=== PATIENT | male | born 1965 | race Caucasian/White ===

== ENCOUNTER 2019-05-21 18:26 | Inpatient (IN) | payer OTHER, MEDICAID ==
[~2019-05-21] VITALS: Ht 170.2 cm; Wt 80.3 kg
[2019-05-21 20:17] VITALS: BP_SYST 106
[2019-05-21] MEDS ORDERED: LEVOFLOXACIN 500 MG/D5W 100 ML IV ONE (21:32)
[2019-05-21] MEDS: NACL 0.9% 1,000 ML IV SCH (21:32)
[2019-05-21] MEDS: ACETAMINOPHEN 325 MG TABLET PO PRN (21:32)
[2019-05-21] MEDS ORDERED: cefTRIAXone 1 GM IVPB PREMIX 50 ML IV ONE (21:32)
[2019-05-21] MEDS: LEVOFLOXACIN 500 MG/D5W 100 ML IV SCH (21:44)
[2019-05-21 21:58] LABS: BASOPHILS % (AUTO) 0.4 % (0.0-2.0); EOSINOPHILS % (AUTO) 0.7 % (0.0-4.0); HEMATOCRIT 30.7 % (36-54); HEMOGLOBIN 10.3 g/dL (14.0-18.0); LYMPHOCYTES # (AUTO) 0.8 K/uL (1.0-5.5); LYMPHOCYTES % (AUTO) 11.2 % (20.5-51.5); MEAN CORPUSCULAR HEMOGLOBIN 30 pg (27-31); MEAN CORPUSCULAR HGB CONC 34 % (32-36); MEAN CORPUSCULAR VOLUME 88 fL (79.0-98.0); MONOCYTES # (AUTO) 0.7 K/uL (0.0-1.0); MONOCYTES % (AUTO) 10.2 % (1.7-9.3); NEUTROPHILS # (AUTO) 5.3 K/uL (1.8-7.7); NEUTROPHILS % (AUTO) 77.5 % (40.0-70.0); PLATELET COUNT (AUTO) 319 K/uL (130-430); RED CELL DISTRIBUTION WIDTH 15.7 % (9.0-15.0); WHITE BLOOD COUNT (AUTO) 6.9 K/uL (4.8-10.8)
[2019-05-21 22:07] LABS: ALBUMIN 2.5 g/dL (3.4-4.8); CALCIUM 7.9 mg/dL (8.4-11.0); CREATININE 0.65 mg/dL (0.55-1.30); POTASSIUM 3.6 mmol/L (3.5-5.1); TOTAL BILIRUBIN 0.5 mg/dL (0.0-1.0)
[2019-05-22 01:16] VITALS: BP_SYST 108
[2019-05-22] MEDS: NACL 0.9% 1,000 ML IV SCH ×2 (06:23→17:23)
[2019-05-22] MEDS: ENOXAPARIN SODIUM 40 MG/0.4 ML SYRINGE SUBCUT SCH (09:07)
[2019-05-22] MEDS: ACETAMINOPHEN 325 MG TABLET PO PRN ×2 (09:17→23:00)
[2019-05-22] MEDS ORDERED: cefTRIAXone 1 GM in D5W 50 ML IV SCH (12:00)
[2019-05-22 12:47] VITALS: BP_SYST 102
[2019-05-22 16:00] VITALS: BP_SYST 97
[2019-05-22 20:00] VITALS: BP_SYST 111
[2019-05-22] MEDS: LEVOFLOXACIN 500 MG/D5W 100 ML IV SCH (22:59)
[2019-05-22] MEDS: BISACODYL 10 MG/SUPPOSITORY RC PRN (23:00)
[2019-05-23 01:00] VITALS: BP_SYST 121
[2019-05-23] MEDS: NACL 0.9% 1,000 ML IV SCH ×3 (04:08→23:00)
[2019-05-23 04:10] VITALS: BP_SYST 111
[2019-05-23 06:13] LABS: BASOPHILS % (AUTO) 0.4 % (0.0-2.0); EOSINOPHILS # (AUTO) 0.1 K/uL (0.0-0.4); EOSINOPHILS % (AUTO) 1.1 % (0.0-4.0); HEMATOCRIT 28.1 % (36-54); HEMOGLOBIN 9.4 g/dL (14.0-18.0); MEAN CORPUSCULAR HEMOGLOBIN 29 pg (27-31); MEAN CORPUSCULAR HGB CONC 33 % (32-36); MEAN CORPUSCULAR VOLUME 87 fL (79.0-98.0); MONOCYTES # (AUTO) 0.7 K/uL (0.0-1.0); MONOCYTES % (AUTO) 15.9 % (1.7-9.3); NEUTROPHILS # (AUTO) 2.8 K/uL (1.8-7.7); NEUTROPHILS % (AUTO) 60.6 % (40.0-70.0); PLATELET COUNT (AUTO) 294 K/uL (130-430); RED BLOOD CELL COUNT(AUTO) 3.22 MIL/uL (4.2-6.2); RED CELL DISTRIBUTION WIDTH 15.3 % (9.0-15.0); WHITE BLOOD COUNT (AUTO) 4.6 K/uL (4.8-10.8)
[2019-05-23 06:52] LABS: CALCIUM 7.9 mg/dL (8.4-11.0); CREATININE 0.58 mg/dL (0.55-1.30); POTASSIUM 3.4 mmol/L (3.5-5.1)
[2019-05-23] MEDS: ENOXAPARIN SODIUM 40 MG/0.4 ML SYRINGE SUBCUT SCH (09:47)
[2019-05-23 11:17] VITALS: BP_SYST 107
[2019-05-23] MEDS ORDERED: NORFLURANE/HFC 245FA 103.5 ML SPRAY TP ONE (14:00)
[2019-05-23] MEDS ORDERED: PIPERACILLIN/TAZO 4.5GM/DEX-IS 100 ML IV ONE (14:30)
[2019-05-23 15:00] VITALS: BP_SYST 108
[2019-05-23 15:56] LABS: BODY FLUID CRYSTALS NO CRYSTALS SEEN (None Seen); RBC, BODY FLUID 10350 /uL; WBC, BODY FLUID 275 /uL
[2019-05-23 20:03] VITALS: BP_SYST 107
[2019-05-23] MEDS: PIPERACILLIN/TAZO 4.5GM/DEX-IS 100 ML IV SCH (21:27)
[2019-05-23 22:58] VITALS: BP_SYST 117
[2019-05-23] MEDS: ACETAMINOPHEN 325 MG TABLET PO PRN (22:59)
[2019-05-24] MEDS: NACL 0.9% 1,000 ML IV SCH ×2 (05:48→19:41)
[2019-05-24] MEDS: PIPERACILLIN/TAZO 4.5GM/DEX-IS 100 ML IV SCH ×2 (05:49→13:11)
[2019-05-24 07:55] VITALS: BP_SYST 118
[2019-05-24] MEDS: ENOXAPARIN SODIUM 40 MG/0.4 ML SYRINGE SUBCUT SCH (08:45)
[2019-05-24 11:08] VITALS: BP_SYST 100
[2019-05-24] MEDS: BISACODYL 10 MG/SUPPOSITORY RC PRN (13:10)
[2019-05-24 15:10] VITALS: BP_SYST 119
[2019-05-24] MEDS ORDERED: GENTAMICIN 120 mg/ NS 100 mL IVPB IV ONE (17:45)
[2019-05-24 20:26] VITALS: BP_SYST 128
[2019-05-25 01:00] VITALS: BP_SYST 105
[2019-05-25] MEDS: NACL 0.9% 1,000 ML IV SCH ×2 (05:44→17:51)
[2019-05-25 07:35] VITALS: BP_SYST 122
[2019-05-25] MEDS: ENOXAPARIN SODIUM 40 MG/0.4 ML SYRINGE SUBCUT SCH (09:11)
[2019-05-25] MEDS: GENTAMICIN SULFATE IV SCH (09:36)
[2019-05-25] MEDS: NS IV SCH (09:36)
[2019-05-25 12:30] VITALS: BP_SYST 90
[2019-05-25 16:12] VITALS: BP_SYST 93
[2019-05-25 20:00] VITALS: BP_SYST 127
[2019-05-26 00:28] VITALS: BP_SYST 97
[2019-05-26] MEDS: NACL 0.9% 1,000 ML IV SCH ×4 (01:10→23:39)
[2019-05-26 06:26] LABS: BASOPHILS % (AUTO) 0.6 % (0.0-2.0); EOSINOPHILS # (AUTO) 0.2 K/uL (0.0-0.4); EOSINOPHILS % (AUTO) 2.8 % (0.0-4.0); HEMOGLOBIN 10.3 g/dL (14.0-18.0); LYMPHOCYTES # (AUTO) 1.7 K/uL (1.0-5.5); LYMPHOCYTES % (AUTO) 30.3 % (20.5-51.5); MEAN CORPUSCULAR HEMOGLOBIN 30 pg (27-31); MEAN CORPUSCULAR HGB CONC 34 % (32-36); MEAN CORPUSCULAR VOLUME 87 fL (79.0-98.0); MONOCYTES # (AUTO) 0.7 K/uL (0.0-1.0); MONOCYTES % (AUTO) 12.5 % (1.7-9.3); NEUTROPHILS # (AUTO) 3.1 K/uL (1.8-7.7); NEUTROPHILS % (AUTO) 53.8 % (40.0-70.0); PLATELET COUNT (AUTO) 391 K/uL (130-430); RED BLOOD CELL COUNT(AUTO) 3.47 MIL/uL (4.2-6.2); RED CELL DISTRIBUTION WIDTH 15.8 % (9.0-15.0); WHITE BLOOD COUNT (AUTO) 5.7 K/uL (4.8-10.8)
[2019-05-26 06:43] LABS: ALBUMIN 2.6 g/dL (3.4-4.8); CALCIUM 8.2 mg/dL (8.4-11.0); CREATININE 0.59 mg/dL (0.55-1.30); POTASSIUM 3.6 mmol/L (3.5-5.1); TOTAL BILIRUBIN 0.3 mg/dL (0.0-1.0)
[2019-05-26 08:00] VITALS: BP_SYST 102
[2019-05-26] MEDS: NS IV SCH (08:44)
[2019-05-26] MEDS: GENTAMICIN SULFATE IV SCH (08:44)
[2019-05-26] MEDS: ENOXAPARIN SODIUM 40 MG/0.4 ML SYRINGE SUBCUT SCH (08:48)
[2019-05-26] MEDS: BISACODYL 10 MG/SUPPOSITORY RC PRN (10:30)
[2019-05-26 12:25] VITALS: BP_SYST 101
[2019-05-26 16:00] VITALS: BP_SYST 111
[2019-05-26 20:00] VITALS: BP_SYST 98
[2019-05-27 02:05] VITALS: BP_SYST 96
[2019-05-27 08:15] VITALS: BP_SYST 101
[2019-05-27] MEDS: GENTAMICIN SULFATE IV SCH (08:27)
[2019-05-27] MEDS: NS IV SCH (08:27)
[2019-05-27] MEDS: ENOXAPARIN SODIUM 40 MG/0.4 ML SYRINGE SUBCUT SCH (08:28)
[2019-05-27 09:36] LABS: BASOPHILS % (AUTO) 0.6 % (0.0-2.0); EOSINOPHILS # (AUTO) 0.2 K/uL (0.0-0.4); EOSINOPHILS % (AUTO) 2.8 % (0.0-4.0); HEMATOCRIT 31.2 % (36-54); HEMOGLOBIN 10.5 g/dL (14.0-18.0); LYMPHOCYTES # (AUTO) 1.7 K/uL (1.0-5.5); LYMPHOCYTES % (AUTO) 27.7 % (20.5-51.5); MEAN CORPUSCULAR HEMOGLOBIN 29 pg (27-31); MEAN CORPUSCULAR HGB CONC 34 % (32-36); MEAN CORPUSCULAR VOLUME 88 fL (79.0-98.0); MONOCYTES # (AUTO) 0.5 K/uL (0.0-1.0); MONOCYTES % (AUTO) 8.2 % (1.7-9.3); NEUTROPHILS # (AUTO) 3.8 K/uL (1.8-7.7); NEUTROPHILS % (AUTO) 60.7 % (40.0-70.0); PLATELET COUNT (AUTO) 394 K/uL (130-430); RED BLOOD CELL COUNT(AUTO) 3.57 MIL/uL (4.2-6.2); RED CELL DISTRIBUTION WIDTH 15.5 % (9.0-15.0); WHITE BLOOD COUNT (AUTO) 6.2 K/uL (4.8-10.8)
[2019-05-27] MEDS ORDERED: DIATR MEGLU/DIATRIZ SOD 30 ML SOLUTION PO ONE (09:36)
[2019-05-27 09:57] LABS: ALBUMIN 2.5 g/dL (3.4-4.8); CALCIUM 8.7 mg/dL (8.4-11.0); CREATININE 0.64 mg/dL (0.55-1.30); POTASSIUM 3.5 mmol/L (3.5-5.1); TOTAL BILIRUBIN 0.3 mg/dL (0.0-1.0)
[2019-05-27] MEDS: NACL 0.9% 1,000 ML IV SCH (10:14)
[2019-05-27 12:42] VITALS: BP_SYST 96
[2019-05-27 16:00] VITALS: BP_SYST 103
[2019-05-27 17:44] VITALS: BP_SYST 96
[2019-05-27 20:00] VITALS: BP_SYST 113
[2019-05-27] MEDS ORDERED: CIPROFLOXACIN LACT 400 MG/D5W 200 ML IV SCH (21:00)
== END 2019-05-27 20:30 | DRG 871 ==
LOC: SMU 19:50 → STU 20:13
PROVIDERS: ADMIT Internal Medicine; ATTEND Internal Medicine
PROC: 0S9D3ZZ Drainage of Left Knee Joint, Percutaneous Approach (ICD-10-PCS; principal; 2019-05-23)
DX: A41.52 Sepsis due to Pseudomonas (principal); G82.50 Quadriplegia, unspecified; N39.0 Urinary tract infection, site not specified; L03.116 Cellulitis of left lower limb; M25.062 Hemarthrosis, left knee; M17.0 Bilateral primary osteoarthritis of knee; D64.9 Anemia, unspecified; N31.9 Neuromuscular dysfunction of bladder, unspecified; M41.9 Scoliosis, unspecified; M25.462 Effusion, left knee; M25.461 Effusion, right knee; Z87.891 Personal history of nicotine dependence
CPT/HCPCS: 36415; 71045; 73560-TC; 76770; 80048; 80053; 80170-TC; 85025; 87040-TC; 87070-TC; 87086; 87186-TC; 87205-TC; 89051-TC; 89060-TC; G0378; J0696; J0744; J1580; J1650; J1956; J2543; J7030; J7060; Q9964